=== PATIENT | female | born 1995 | race Caucasian/White ===

== ENCOUNTER 2016-09-15 20:23 | Emergency (ER) | payer OTHER ==
[~2016-09-15] VITALS: Ht 149.9 cm; Wt 50.8 kg
[2016-09-15 20:42] VITALS: BP 114/74
--- NOTE | 2016-09-15 21:03 | NUR ---
AMBULATED TO ER OF2
--- NOTE | 2016-09-15 21:15 | NUR ---
Patient being evaluated by physician.
[2016-09-15] MEDS ORDERED: KETOROLAC 30 MG/ML VIAL IM ONE (21:20)
--- NOTE | 2016-09-15 21:21 | NUR ---
21Y/F PATIENT PRESENTS TO ED WITH C/O FLU LIKE SYMPTOMS X1 DAY . PT STATES STARTED COUGHING AND HAVING FEVER YESTERDAY. DENIES N/V/D; SKIN IS PINK/WARM/DRY; AAOX4 WITH EVEN AND STEADY GAIT; LUNGS CLEAR BL; HR EVEN AND REGULAR; PT DENIES ANY FEVER, CP, SOB, OR COUGH AT THIS TIME; PATIENT STATES PAIN OF 0/10 AT THIS TIME; VSS; PATIENT POSITIONED FOR COMFORT; HOB ELEVATED; BEDRAILS UP X2; BED DOWN. ER MD MADE AWARE OF PT STATUS.
[2016-09-15 21:32] VITALS: BP 110/73
--- NOTE | 2016-09-15 21:32 | NUR ---
Patient discharged with v/s stable. Written and verbal after care instructions given and explained. Patient alert, oriented and verbalized understanding of instructions. Ambulatory with steady gait. All questions addressed prior to discharge. ID band removed. Patient advised to follow up with PMD. Rx of NAPROSYN, TAMIFLU, TYLENOL WITH CODEINE given. Patient educated on indication of medication including possible reaction and side effects. Opportunity to ask questions provided and answered.
== END 2016-09-15 21:30 | disposition home or self-care (01) ==
LOC: MED 20:23
DX: J09.X2 Influenza due to identified novel influenza A virus with other respiratory manifestations (principal); J45.909 Unspecified asthma, uncomplicated; K21.9 Gastro-esophageal reflux disease without esophagitis
CPT/HCPCS: 36415; 87804; 96372; 99284; J1885

== ENCOUNTER 2022-01-26 05:35 | Emergency (ER) | payer OTHER ==
[~2022-01-26] VITALS: Ht 160 cm; Wt 46.3 kg
[2022-01-26 05:41] VITALS: BP 103/61
--- NOTE | 2022-01-26 05:51 | NUR ---
VIN BENITEZ SLEF TAKEN TO BED 09.
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
--- NOTE | 2022-01-26 06:08 | NUR ---
DR. AGUILAR AT BEDSIDE EVALUATING PT.
[2022-01-26] MEDS ORDERED: CYCL-711 PO (06:25)
[2022-01-26] MEDS ORDERED: IBUP-1842 PO (06:25)
[2022-01-26] MEDS ORDERED: IBUPROFEN 400 MG TAB PO ONE (06:30)
[2022-01-26 06:42] VITALS: BP 112/61
--- NOTE | 2022-01-26 06:42 | NUR ---
Patient discharged with v/s stable. Written and verbal after care instructions given and explained. Patient alert, oriented and verbalized understanding of instructions. Ambulatory with steady gait. All questions addressed prior to discharge. ID band removed. Patient advised to follow up with PMD. Rx of Motrin and Flexeril given. Patient educated on indication of medication including possible reaction and side effects. Opportunity to ask questions provided and answered.
== END 2022-01-26 06:42 | disposition home or self-care (01) ==
LOC: MED 05:35
DX: S46.812A Strain of other muscles, fascia and tendons at shoulder and upper arm level, left arm, initial encounter (principal); J45.909 Unspecified asthma, uncomplicated; K21.9 Gastro-esophageal reflux disease without esophagitis; V49.88XA Car occupant (driver) (passenger) injured in other specified transport accidents, initial encounter; Y93.89 Activity, other specified; Y92.89 Other specified places as the place of occurrence of the external cause; Y99.8 Other external cause status
CPT/HCPCS: 99283